=== PATIENT | female | born 1945 | race Caucasian/White ===

== ENCOUNTER 2017-12-05 08:35 | Day surgery (SDC) | payer OTHER ==
[~2017-12-05 08:35] MED LIST: LIDOCAINE 2% (SDV) 5 ML INJ
[2017-12-05] MEDS: PHENYLephrine 2.5% 15 ML OPH OPER (09:38)
[2017-12-05] MEDS: CYCLOPENTOLATE 1% 2 ML OPH OPER (09:38)
[2017-12-05] MEDS: MOXIFLOXACIN 0.5% 3 ML OPH OPER (09:38)
[2017-12-05] MEDS: TROPICAMIDE 1% 3 ML OPH OPER (09:38)
[2017-12-05] MEDS: DICLOFENAC 0.1% 2.5 ML OPH OPER (09:38)
[2017-12-05] MEDS ORDERED: SOD CHLORIDE 0.9% 1,000 ML IV (10:00)
[2017-12-05] MEDS ORDERED: LACTATED RINGER'S 1,000 ML IV* (10:00)
[2017-12-05] MEDS ORDERED: PROPOFOL 20 ML (10:39)
[2017-12-05] MEDS ORDERED: ONDANSETRON 4 MG INJ (10:40)
[2017-12-05] MEDS ORDERED: LIDOCAINE 1% (MPF) 10 ML INJ (11:07)
[2017-12-05] MEDS ORDERED: EPINEPHrine 1 MG INJ (11:07)
[2017-12-05] MEDS ORDERED: FENTAnyl 50 MCG/ML VIAL (11:53)
[2017-12-05] MEDS ORDERED: EPHEDrine SULFATE 50 MG/5 ML SYG (12:36)
[2017-12-05] MEDS: TOBRAMYCIN/DEXAMETH 3.5 GM OPH OINT (13:08)
[2017-12-05] MEDS: KETOROLAC 30 MG INJ IV (13:19)
[2017-12-05] MEDS: ONDANSETRON 4 MG INJ IV (13:19)
[2017-12-05] MEDS: FENTAnyl 50 MCG/ML VIAL IV (13:29)
== END 2017-12-05 14:20 | disposition home or self-care (01) ==
LOC: SDS 08:35
DX: H25.12 Age-related nuclear cataract, left eye (principal); E78.5 Hyperlipidemia, unspecified; I10 Essential (primary) hypertension
CPT/HCPCS: 66984